=== PATIENT | male | born 1995 | race Hispanic/Latino ===

== ENCOUNTER 2022-02-19 08:27 | Emergency (ER) | payer SELFPAY ==
[2022-02-19 08:52] VITALS: BP 108/59
[2022-02-19 16:23] LABS: Color,Urine Yellow (Yellow)
[2022-02-19 16:24] LABS: Mucus,Urine FEW /HPF; WBC,Urine < 1.0 /HPF (0.0-6.0)
== END 2022-02-19 21:01 | disposition left against medical advice (07) ==
LOC: ED 08:27
DX: R10.9 Unspecified abdominal pain (principal); Z53.21 Procedure and treatment not carried out due to patient leaving prior to being seen by health care provider
CPT/HCPCS: 81001